=== PATIENT | female | born 1995 | race Caucasian/White ===

== ENCOUNTER 2024-10-22 10:03 | Emergency (ER) | payer SELFPAY ==
--- NOTE | ~2024-10-22 | XR_ITS ---
EXAMINATION: XR hand LT min 3V DATE: 10/22/2024 11:01 INDICATION: Left hand injury TECHNIQUE: Posteroanterior, oblique and lateral views of the left hand were obtained. COMPARISON: None. 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 There is approximately 1 mm posterior distraction of a couple small intra-articular avulsion fractu re fragments at the dorsal base of the third and fourth distal phalanges. No other fractures identifi ed. Bone alignment is otherwise normal. Joint spaces are normal. IMPRESSION: 1. 1 mm distraction of a small intra-articular avulsion fracture fragments at the dorsal base of the left third and fourth distal phalanges. 2. 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 Reviewed, dictated and finalized at location A. IMPRESSION: 1. 1 mm distraction of a small intra-articular avulsion fracture fragments at t he dorsal base of the left third and fourth distal phalanges. 2. Chronic nonunion with small fracture fragment at the tuft of the third dista l phalanx.
[2024-10-22 10:46] VITALS: BP 131/84; PULSE 70; RESP 16; TEMP 36.6; O2SAT 100
--- NOTE | 2024-10-22 11:23 | ED.UPPEXIN ---
HPI - Extremity Injury (Upper) General Chief Complaint: Extremity Injury, Upper Stated Complaint: INJURED L FINGERS Time Seen by Provider: 10/22/24 10:11 Source: patient Mode of arrival: ambulatory Limitations: no limitations History of Present Illness HPI narrative: 29-year-old female presented for complaint of pain and bruising to the left hand middle and ring fingers following injury yesterday. States she attempted to catch a football when it bent the tips of the fingers back. Pt has kept them taped. Denies numbness tingling or weakness. Related Data Home Medications Medication Instructions Recorded Confirmed Last Taken Type No Home Medications 10/22/24 10/22/24 Unknown History Allergies Allergy/AdvReac Type Severity Reaction Status Date / Time aloe Allergy Unknown Unknown Verified 10/22/24 10:44 peanut Allergy Unknown Unknown Verified 10/22/24 10:44 Review of Systems Review of Systems: CONSTITUTIONAL: Denies body aches, fever, chills EYES: Denies visual changes ENT: Denies rhinorrhea, congestion CARDIOVASCULAR: Denies chest pain, palpitations, or edema. RESPIRATORY: Denies cough or dyspnea. SKIN: Denies rash, itching, or wounds. MUSCULOSKELETAL: per HPI NEUROLOGIC: Denies headache, numbness, tingling, or weakness. All systems reviewed & are unremarkable except as noted in HPI and below PMFSH Comments At time of signature, I have reviewed and agree with nursing past medical, surgical, social and family history unless otherwise noted. Please see nursing chart for further information. There is no relevant family history pertinent to the presenting complaint Exam Narrative: GENERAL: Well-appearing, well-nourished, and in no acute distress. CHEST: Speaks in full sentences. No respiratory distress. HEART: Regular rate and rhythm. Normal and equal peripheral pulses. EXTREMITIES: Left hand 3rd and 4th digits DIP joints with bruising and mild swelling. Tender with palpation over the DIPs, normal strength and sensation. No open wounds, or obvious deformity; alignment normal, pulse palpable and equal bilaterally, skin warm, dry, pink. Capillary refill less than 3 seconds. SKIN: Warm, dry NEURO: Alert and oriented x3. PSYCH: Normal mood and affect Course Course Emergency Course: Patient is aware of diagnosis, understands and agrees to treatment plan. Anticipatory guidance given. Patient agrees to follow-up as directed and is aware of reasons to seek care at the emergency department. Portions of this record may have been created with voice recognition software Level of Care: Express Care Visit Vital Signs Vital signs: Vital Signs Temperature 97.9 F 10/22/24 10:46 Pulse Rate 70 10/22/24 10:46 Respiratory Rate 16 10/22/24 10:46 Blood Pressure 131/84 10/22/24 10:46 Pulse Oximetry 100 10/22/24 10:46 Temperature 97.9 F 10/22/24 10:46 Pulse Rate 70 10/22/24 10:46 Respiratory Rate 16 10/22/24 10:46 Blood Pressure 131/84 10/22/24 10:46 Pulse Oximetry 100 10/22/24 10:46 Reviewed MDM - Extremity Injury (Upper) MDM Narrative Medical decision making narrative: Discussed physical exam findings and xray; pt declined splinting in clinic stating her step father is an orthopedic surgeon and will tape them for her when she leaves. Pt will follow up with him as well per her request. Advised supportive measures and signs/symptoms to go to the ER. Pt is appropriate for outpt treatment and f/u. Differential Diagnosis Differential diagnosis: Likely finger sprain and dislocation of finger Imaging Data Radiologist's impression: Patient: Love Noriega : 1995 MR#: [id number] Age: 29 Acct:[id number] Loc: [facility] ADM Date: 10/22/24Attending Dr: Ordering Physician: Ana Sanots APRN Date of Service: 10/22/24 Procedure(s): XR hand LT min 3V Accession Number(s): [id number] cc: Ana Santos APRN; DISTRIBUTION ACCOUNTING CLERK PHYSICIAN~ EXAMINATION: XR hand LT min 3V DATE: 10/22/2024 11:01 INDICATION: Left hand injury TECHNIQUE: Posteroanterior, oblique and lateral views of the left hand were obtained. COMPARISON: None. 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 There is approximately 1 mm posterior distraction of a couple small intra-articular avulsion fracture fragments at the dorsal base of the third and fourth distal phalanges. No other fractures identified. Bone alignment is otherwise normal. Joint spaces are normal. IMPRESSION: 1. 1 mm distraction of a small intra-articular avulsion fracture fragments at the dorsal base of the left third and fourth distal phalanges. 2. 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 Discharge Plan Discharge Clinical Impression: Finger fracture Patient Disposition: Home Condition: Stable Instructions: Finger Fracture (ED) Additional Instructions: Rest, ice and elevate the left hand; activity as tolerated limiting use of the left hand Motrin 600mg every 8 hours, as needed, for pain (take with food). Tylenol 1000mg every 8 hours. Keep fingers taped together at the ends to reduce mobility. Go to the ER immediately for increased pain, tingling/numbness, swelling, redness,etc Follow up with Orthopedic Surgery in 2 days for further evaluation - please call today for an appointment. Patient Language: Indonesian Prescriptions: No Action No Home Medications Follow-up/Referrals: Andrews Win MD [Physician] - PHYSICIAN,DISTRIBUTION ACCOUNTING CLERK [Primary Care Provider] - Time of Disposition: 11:30
== END 2024-10-22 11:44 | disposition home or self-care (01) ==
PROVIDERS: Emergency Provider Nurse Practitioner Family
DX: S62.633A Displaced fracture of distal phalanx of left middle finger, initial encounter for closed fracture (principal); S62.635A Displaced fracture of distal phalanx of left ring finger, initial encounter for closed fracture; W21.01XA Struck by football, initial encounter
CPT/HCPCS: 73130; 99203; G0463